=== PATIENT | male | born 1990 ===

== ENCOUNTER 2021-11-01 20:43 | Emergency (ER) | payer BC ==
[2021-11-01] MEDS ORDERED: Dexamethasone 10 MG/ML SDV IM STA (22:15)
[2021-11-01] MEDS ORDERED: Ketorolac 30 MG/ML SDV IM ONE (22:15)
[2021-11-01] MEDS ORDERED: Cyclobenzaprine 10 MG Tab PO ONE (22:15)
== END 2021-11-01 23:23 | disposition home or self-care (01) ==
LOC: MW.ED 20:43
DX: M54.42 Lumbago with sciatica, left side (principal)
CPT/HCPCS: 96372; 99283; A9270; J1100; J1885